=== PATIENT | female | born 1990 | race Caucasian/White ===

== ENCOUNTER 2016-05-05 20:04 | Emergency (ER) | payer MEDICAID, OTHER ==
[~2016-05-05] VITALS: Ht 170.2 cm; Wt 85.0 kg
[2016-05-05 20:05] VITALS: BP 127/83; PULSE 104; RESP 16; TEMP 98.2; O2SAT 98
--- NOTE | 2016-05-05 22:02 | PD ---
HPI Chief Complaint: Director Consumer Affairs Problem/Complaint Time Seen by Provider: 21:50 Travel History International Travel<30 days: No Contact w/Intl Traveler<30days: No Traveled to known affect area: No History of Present Illness HPI This patient was examined in the presence of a female nurse. 25 her old female presents for evaluation of a mass in the vagina. She reports that this occurred initially several months ago. She was seen in outside hospital that she had a "abscess of some kind" in her vagina. She is placed on antibiotics in the absence of eventually reduced significantly in size but never went completely well. The pain didn't completely go away. She reports that 2 days ago the pain and swelling returned which prompted evaluation. She denies any drainage. No fevers or chills. She notes that she is currently on her menstrual period. No other complaints. PFSH Past Medical History Diminished Hearing: No : 3 Para: 3 Past Surgical History Section: Yes Social History Alcohol Use: No Tobacco Use: No Substance Use: No Allergies-Medications (Allergen,Severity, Reaction): Coded Allergies: No Known Allergies (Unverified , 05/05/16) Reported Meds & Prescriptions Reported Meds & Active Scripts Active Zofran (Ondansetron HCl) 4 Mg Tab 4 Mg PO Q6HR PRN Lortab (Hydrocodone-Acetaminophen) 5-325 Mg Tab 1 Tab PO Q6H PRN Clindamycin (Clindamycin HCl) 300 Mg Cap 300 Mg PO TID 10 Days Review of Systems Except as stated in HPI: all other systems reviewed are Neg Physical Exam Narrative Examined in the presence of a female nurse GENERAL: Well-developed well-nourished female in no acute distress SKIN: Warm and dry. HEAD: Atraumatic. Normocephalic. EYES: Pupils equal and round. No scleral icterus. No injection or drainage. ENT: No nasal bleeding or discharge. Mucous membranes pink and moist. NECK: Trachea midline. No JVD. CARDIOVASCULAR: Regular rate and rhythm. No murmur appreciated. RESPIRATORY: No accessory muscle use. Clear to auscultation. Breath sounds equal bilaterally. GASTROINTESTINAL: Abdomen soft, non-tender, nondistended. Hepatic and splenic margins not palpable. Pelvic: There is a 3 cm fluctuant mass in the external vaginal canal at the 2 o' clock position. Tender to palpation. MUSCULOSKELETAL: No obvious deformities. Normal gait. NEUROLOGICAL: Awake and alert. No obvious cranial nerve deficits. Motor grossly within normal limits. Normal speech. PSYCHIATRIC: Appropriate mood and affect; insight and judgment normal. Data Data Last Documented VS Vital Signs Date Time Temp Pulse Resp B/P Pulse Ox O2 Delivery O2 Flow Rate FiO2 05/05/16 20:05 98.2 104 16 127/83 98 Orders Lidocai-Epi 1%-1:100,000 Inj (Xylocaine- (05/05/16 22:30) Oxycodone-Acetamin 5-325 Mg (Percocet (05/05/16 22:30) Ondansetron Odt (Zofran Odt) (05/05/16 22:30) Clindamycin Inj (Cleocin Inj) (05/05/16 22:30) MDM Medical Decision Making Medical Screen Exam Complete: Yes Emergency Medical Condition: Yes Medical Record Reviewed: Yes Differential Diagnosis Vaginal abscess, cyst, uterine prolapse, tumor Narrative Course 25 her old female who has had a mass in her left upper vaginal canal for the past several months presents now with 2 days worsening swelling in regards to the mass as well as pain. On examination she appears to have an abscess or infected cyst in the 2 o'clock position of the vaginal canal. The plan is for incision and drainage for which she verbally consents. A Word catheter was placed, wound culture was performed. The patient was given clindamycin, Percocet and Zofran. The patient will be given a mandatory outpatient referral for follow-up with gynecology. She is stable for discharge. Procedures Procedure Narrative INCISION AND DRAINAGE OF ABSCESS: The area was prepped and was sterilely draped. A subcutaneous wheal of 1% Xylocaine with epinephrine with a total number 5 mL was used to anesthetize the area. The area was properly anesthetized. A number 11 scalpel was used to make a 1-cm incision across the area of the abscess. Cultures were obtained. The abscess was drained an irrigated with normal saline. word catheter was placed and insufflated. Patient tolerated procedure well. Diagnosis Primary Impression: Abscess of vagina Referrals: Ticketing Agent Additional Instructions: As discussed, you should be receiving a call from our nurse outreach case manager in the next week to help facilitate outpatient follow-up with a inspector canned food reconditioning. Warm sitz baths 2-3 times daily 15 minutes at a time. Take the antibiotics as prescribed. Lortab for pain. Do not drive or drink alcohol when taking this medication. Return for new or worsening symptoms. Med/Other Pt SpecificInfo: Prescription(s) given, Wound Care Scripts Ondansetron (Zofran)4 Mg Tab4 Mg PO Q6HR PRN (NAUSEA OR VOMITING) #20 TAB Ref 0 Prov:Deborah Yu MD 05/05/16 Hydrocodone-Acetaminophen (Lortab)5-325 Mg Tab1 Tab PO Q6H PRN (PAIN) #20 TAB Ref 0 Prov:Deborah Yu MD 05/05/16 Clindamycin 300 Mg [id number] Mg PO TID 10 Days Ref 0 Prov:Deborah Yu MD 05/05/16 Disposition: 01 DISCHARGE HOME Condition: Stable Rj West May 05, 2016 22:02
[2016-05-05] MEDS ORDERED: oxyCODONE/ACETAMINOPHEN 5 MG/325 MG TAB PO ONE (22:30)
[2016-05-05] MEDS ORDERED: ONDANSETRON ODT 4 MG TAB PO ONE (22:30)
[2016-05-05] MEDS ORDERED: LIDOCAINE 1%/EPINEPHrine 1:100,000 SOLN 20 ML VIAL INFIL ONE (22:30)
[2016-05-05] MEDS ORDERED: CLINDAMYCIN PHOS 600 MG/4 ML VIAL IM ONE (22:30)
[2016-05-05] MEDS ORDERED: CLIN1CAP6 PO (22:53)
[2016-05-05] MEDS ORDERED: HYDR-3533 PO (22:53)
[2016-05-05] MEDS ORDERED: ZOFR4TAB PO (22:53)
--- NOTE | 2016-05-05 22:55 | PD ---
Data Data Last Documented VS Vital Signs Date Time Temp Pulse Resp B/P Pulse Ox O2 Delivery O2 Flow Rate FiO2 05/05/16 20:05 98.2 104 16 127/83 98 Orders Lidocai-Epi 1%-1:100,000 Inj (Xylocaine- (05/05/16 22:30) Oxycodone-Acetamin 5-325 Mg (Percocet (05/05/16 22:30) Ondansetron Odt (Zofran Odt) (05/05/16 22:30) Clindamycin Inj (Cleocin Inj) (05/05/16 22:30) MDM Supervised Visit with ALEXANDRU: Yes Narrative Course I, Dr. Yu, have reviewed the advance practice practioner's documentation and am in agreement, met with the patient face to face, made the diagnosis, and the medical decision making was done by me. *My assessment and Findings: 25-year-old female here with complaint of vaginal mass, initially had this approximately 8 months ago and had some sort of antibiotics. States it never completely went away but over the last 2 days it has increased in size. On exam patient has a protuberant fluctuant mass inside the vaginal vault at approximately 2 to 4:00. Bimanual examination is unremarkable and there is no cervical masses. There is a centralized area that is blanched and very fluctuant. Exam is most consistent with Bartholin's abscess versus intravaginal abscess. There does not appear any inflammatory tissue suspicious for cancer. Abscess was incised and drained by PA, please see procedure note. Word catheter was placed. She will be started on antibiotics and given outpatient mandatory referral for ORBITREAD OPERATOR. Scripts No Active Prescriptions or Reported Meds Deborah Yu MD May 05, 2016 22:55
== END 2016-05-06 00:09 | disposition home or self-care (01) ==
LOC: NEPE 20:04
DX: N76.4 Abscess of vulva (principal); B96.89 Other specified bacterial agents as the cause of diseases classified elsewhere
CPT/HCPCS: 56405; 87070; 87205; 96372

== ENCOUNTER 2016-05-07 15:01 | Emergency (ER) | payer MEDICAID ==
[~2016-05-07] VITALS: Ht 170.2 cm; Wt 81.8 kg
[~2016-05-07 15:01] MED LIST: CLIN1CAP6 PO; HYDR-3533 PO; ZOFR4TAB PO
[2016-05-07 15:07] VITALS: BP 125/71; PULSE 77; RESP 12; TEMP 98.5; O2SAT 99
--- NOTE | 2016-05-07 19:44 | PD ---
HPI Chief Complaint: Silo Filler Problem Time Seen by Provider: 19:44 Travel History International Travel<30 days: No Contact w/Intl Traveler<30days: No Traveled to known affect area: No History of Present Illness HPI 25 year-old female presents to emergency department for evaluation. Patient was seen and evaluated 2 days ago for a vaginal abscess. A Word catheter was placed at that time but the patient states that it fell out today. She reports taking her antibiotics as prescribed. She states that her symptoms have nearly completely resolved but she is concerned that the catheter should be placed back in. She has no other symptoms to report. [facility] Past Medical History Medical History: Denies Significant Hx Diminished Hearing: No Reproductive: Yes (UTERINE PROLAPSE) ?: Not LMP: 05/07/2016 : 3 Para: 3 Past Surgical History Section: Yes Social History Alcohol Use: No Tobacco Use: No Substance Use: No Allergies-Medications (Allergen,Severity, Reaction): Coded Allergies: No Known Allergies (Unverified , 05/07/16) Reported Meds & Prescriptions Reported Meds & Active Scripts Active Zofran (Ondansetron HCl) 4 Mg Tab 4 Mg PO Q6HR PRN Lortab (Hydrocodone-Acetaminophen) 5-325 Mg Tab 1 Tab PO Q6H PRN Clindamycin (Clindamycin HCl) 300 Mg Cap 300 Mg PO TID 10 Days Review of Systems Except as stated in HPI: all other systems reviewed are Neg Physical Exam Narrative GENERAL: Well-nourished female patient in no acute distress SKIN: Warm and dry. HEAD: Atraumatic. Normocephalic. EYES: Pupils equal and round. No scleral icterus. No injection or drainage. ENT: No nasal bleeding or discharge. Mucous membranes pink and moist. NECK: Trachea midline. No JVD. CARDIOVASCULAR: Regular rate and rhythm. No murmur appreciated. RESPIRATORY: No accessory muscle use. Clear to auscultation. Breath sounds equal bilaterally. GASTROINTESTINAL: Abdomen soft, non-tender, nondistended. Hepatic and splenic margins not palpable. GENITOURINARY: Normal external genitalia without lesions or erythema. There is no noted abscess. There is no area of induration. MUSCULOSKELETAL: No obvious deformities. No clubbing. No cyanosis. No edema. NEUROLOGICAL: Awake and alert. No obvious cranial nerve deficits. Motor grossly within normal limits. Normal speech. PSYCHIATRIC: Appropriate mood and affect; insight and judgment normal. Data Data Last Documented VS Vital Signs Date Time Temp Pulse Resp B/P Pulse Ox O2 Delivery O2 Flow Rate FiO2 05/07/16 19:41 Room Air 05/07/16 15:07 98.5 77 12 125/71 99 MDM Medical Decision Making Medical Screen Exam Complete: Yes Emergency Medical Condition: Yes Medical Record Reviewed: Yes Differential Diagnosis Abscess resolved versus wound recheck versus recurrent abscess versus Bartholin' s cyst Narrative Course 25 year-old female presents to emergency department for evaluation. Patient appears without distress. Exam was done in the presence of another nurse. The external genitalia appear normal without any area of inflammation, erythema, or induration. I have offered reassurance and explained to her that there is no need for the word catheter to be replaced at this time. I've instructed her to continue her antibiotics and to return immediately with any acute worsening of symptoms. Diagnosis Primary Impression: Wound check, abscess Additional Impression: Abscess of vagina Referrals: Final Assembler Boat Primary Care Physician Patient Instructions: Abscess Follow-up (ED), General Instructions Additional Instructions: Follow-up with primary care provider Return immediately to the emergency department with any acute worsening of symptoms A mandatory for a was placed on your last visit for gynecology follow-up. If you do not hear anything by the end of this week, contact [phone] and asked for mandatory referral person. Complete your full course of antibiotics. Take them as they are already prescribed Return immediately to the emergency department with any acute worsening of symptoms Med/Other Pt SpecificInfo: No Change to Meds Disposition: 01 DISCHARGE HOME Condition: Stable Violet Saleem May 07, 2016 19:44
== END 2016-05-07 20:01 | disposition home or self-care (01) ==
LOC: NEPB 15:01
DX: L02.818 Cutaneous abscess of other sites (principal); Z87.42 Personal history of other diseases of the female genital tract
CPT/HCPCS: 99281

== ENCOUNTER 2017-08-12 23:01 | Emergency (ER) | payer MEDICAID ==
[~2017-08-12 23:01] MED LIST changes: -CLIN1CAP6 PO; -ZOFR4TAB PO
[2017-08-12 23:16] VITALS: BP 137/80; PULSE 103; RESP 18; TEMP 98.6; O2SAT 100
[2017-08-12 23:36] VITALS: BP 146/74; PULSE 92; RESP 18; O2SAT 99
[2017-08-12 23:51] VITALS: O2SAT 100
--- NOTE | 2017-08-13 | PD ---
HPI Chief Complaint: Abdominal Pain Time Seen by Provider: 23:41 Travel History International Travel<30 days: No Contact w/Intl Traveler<30days: No Traveled to known affect area: No History of Present Illness HPI The patient is a 26 year old female who presents to the [facility] emergency department with a history of lower abdominal discomfort in the suprapubic area that began at 3 PM. She reports that the pain was initially coming and going, however it is become more severe with time. She reports that it is now sharp in character. She denies having any vaginal discharge or vaginal bleeding associated with this. Her last menstrual cycle was on June 28. She reports that she had a copper IUD removed on July 08 and resumed having intercourse with her on July 19. She reports that she is trying to get again. She is a with 2 vaginal deliveries and 1 C- section. She denies having any dysuria, urinary frequency, or urinary urgency. She reports having nausea without vomiting. She denies having any diarrhea. She has continued to move her bowels regularly. She denies having any known recent fevers, cough or congestion, neck pain, chest pain, shortness of breath, or neurologic symptoms. The patient reports that she does have some breast tenderness. [facility] Past Medical History Narrative Medical The patient's past medical history is reportedly none. Diminished Hearing: No Reproductive: Yes (UTERINE PROLAPSE) Tetanus Vaccination: Unknown Influenza Vaccination: No ?: Unknown LMP: 05/2017 : 3 Para: 3 Past Surgical History Narrative Surgical The patient's past surgical history is significant for a . Section: Yes Social History Alcohol Use: No Tobacco Use: No Substance Use: No Allergies-Medications (Allergen,Severity, Reaction): Coded Allergies: No Known Allergies (Unverified Adverse Reaction, Unknown, 08/12/17) Reported Meds & Prescriptions Reported Meds & Active Scripts Active No Active Prescriptions or Reported Medications Review of Systems Except as stated in HPI: all other systems reviewed are Neg General / Constitutional: No: Fever Eyes: No: Visual changes HENT: No: Headaches Cardiovascular: No: Chest Pain or Discomfort Respiratory: No: Shortness of Breath Gastrointestinal: Positive: Nausea, Abdominal Pain, No: Vomiting, Diarrhea, Changes in Bowel Habits, Indigestion, Loss of Appetite Genitourinary: Positive: Pelvic Pain, No: Urgency, Frequency, Dysuria, Discharge, Vaginal Bleeding Musculoskeletal: No: Pain Skin: No Rash Neurologic: No: Weakness Psychiatric: No: Depression Endocrine: No: Polydipsia Hematologic/Lymphatic: No: Easy Bruising Physical Exam Narrative General: The patient is a well-developed well-nourished female in no acute distress. Head and Neck exam: Head is normocephalic atraumatic. Eyes: EOMI, pupils are equal round and reactive to light. Nose: Midline septum with pink mucous membranes Mouth: Dentition unremarkable. Moist mucus membranes. Posterior oropharynx is not erythematous. No tonsillar hypertrophy. Uvula midline. Airway patent. Neck: No palpable lymphadenopathy. No nuchal rigidity. No thyromegaly. Cardiovascular: Regular rate and rhythm without murmurs, gallops, or rubs. No pulse deficit to the extremities on simultaneous auscultation and palpation of her radial artery. Lungs: Clear to auscultation bilaterally. No wheezes, rhonchi, or rales. Abdomen: Soft, with tenderness on palpation of the suprapubic area, no other tenderness on palpation of the other quadrants of the abdomen. No guarding, rebound, or rigidity. Normal bowel sounds are audible. No tenderness on palpation of McBurney's point. Negative Cisneros sign. Extremities: No clubbing, cyanosis, or edema. 2+ pulses in all 4 extremities. No calf tenderness on palpation. Back: No costovertebral angle tenderness to palpation. Neurologic Exam: Grossly nonfocal. Skin Exam: No rash noted. Intact skin that is warm and dry. Gynecologic exam: The patient was placed in the dorsal lithotomy position. Her external genitalia were examined. She had no evidence of rash or lesions. The speculum was placed into her vagina and the cervix was identified. She has a physiologic appearing white thin discharge. No cervical friability. On Bimanual exam: The patient has cervical motion tenderness on palpation. No adnexal tenderness or prominence noted on palpation. No uterine tenderness or enlargement noted on palpation. Data Data Last Documented VS Vital Signs Date Time Temp Pulse Resp B/P (MAP) Pulse Ox O2 Delivery O2 Flow Rate FiO2 08/13/17 01:37 98.7 71 16 131/83 99 08/12/17 23:51 Room Air Orders Orders Complete Blood Count With Diff (08/12/17 23:48) Comprehensive Metabolic Panel (08/12/17 23:48) C-Reactive Protein (Crp) (08/12/17 23:48) Lipase (08/12/17 23:48) Urinalysis - C+S If Indicated (08/12/17 23:48) Beta Hcg (Quant/Titer) (08/12/17 23:48) Iv Access Insert/Monitor (08/12/17 23:48) Ecg Monitoring (08/12/17 23:48) Oximetry (08/12/17 23:48) Ed Urine Pregnancytest Poc (08/12/17 23:48) Gc And Chlamydia Pcr (08/12/17 23:55) Complete Rh (08/12/17 23:55) Wet Prep Profile (08/12/17 23:55) Us Pelvis (Ques Pr/Ect)W Trans (08/13/17 00:37) Rhogam Only (08/13/17 01:10) Ed Poc Ultrasound (08/13/17 01:38) Ed Discharge Order (08/13/17 03:29) Labs Laboratory Tests Test 08/12/17 23:52 08/12/17 23:55 08/13/17 00:10 White Blood Count 12.2 TH/MM3 Red Blood Count 4.72 MIL/MM3 Hemoglobin 12.5 GM/DL Hematocrit 36.4 % Mean Corpuscular Volume 77.1 FL Mean Corpuscular Hemoglobin 26.5 PG Mean Corpuscular Hemoglobin Concent 34.3 % Red Cell Distribution Width 13.2 % Platelet Count 231 TH/MM3 Mean Platelet Volume 10.0 FL Neutrophils (%) (Auto) 56.6 % Lymphocytes (%) (Auto) 34.4 % Monocytes (%) (Auto) 5.9 % Eosinophils (%) (Auto) 2.6 % Basophils (%) (Auto) 0.5 % Neutrophils # (Auto) 6.9 TH/MM3 Lymphocytes # (Auto) 4.2 TH/MM3 Monocytes # (Auto) 0.7 TH/MM3 Eosinophils # (Auto) 0.3 TH/MM3 Basophils # (Auto) 0.1 TH/MM3 CBC Comment DIFF FINAL Differential Comment Blood Urea Nitrogen 14 MG/DL Creatinine 0.64 MG/DL Random Glucose 89 MG/DL Total Protein 7.9 GM/DL Albumin 3.6 GM/DL Calcium Level 8.8 MG/DL Alkaline Phosphatase 95 U/L Aspartate Amino Transf (AST/SGOT) 14 U/L Alanine Aminotransferase (ALT/SGPT) 26 U/L Total Bilirubin 0.3 MG/DL Sodium Level 138 MEQ/L Potassium Level 3.6 MEQ/L Chloride Level 104 MEQ/L Carbon Dioxide Level 25.5 MEQ/L Anion Gap 9 MEQ/L Estimat Glomerular Filtration Rate 111 ML/MIN C-Reactive Protein 1.66 MG/DL Lipase 124 U/L Human Chorionic Gonadotropin, Quant 37 MIU/ML Urine Color LIGHT-YELLOW Urine Turbidity CLEAR Urine pH 6.5 Urine Specific [place] 1.005 Urine Protein NEG mg/dL Urine Glucose (UA) NEG mg/dL Urine Ketones NEG mg/dL Urine Occult Blood NEG Urine Nitrite NEG Urine Bilirubin NEG Urine Urobilinogen LESS THAN 2.0 MG/DL Urine Leukocyte Esterase MOD Urine WBC 1 /hpf Urine Squamous Epithelial Cells <1 /hpf Microscopic Urinalysis Comment CULT NOT INDICATED Clue Cells (Wet Prep) NONE SEEN Vaginal Trichomonas (Wet Prep) NONE SEEN Vaginal Yeast (Wet Prep) NONE SEEN Chlamydia trachomatis DNA (PCR) NOT DETECTED Neisseria gonorrhoeae DNA (PCR) NOT DETECTED MDM Medical Decision Making Medical Screen Exam Complete: Yes Emergency Medical Condition: Yes Medical Record Reviewed: Yes Differential Diagnosis Early , versus ectopic , versus premenstrual cramping, versus cystitis, versus PID, versus uterine perforation Narrative Course During the course of the patient's emergency department visit, the patient's history, examination, and differential diagnosis were reviewed with the patient. The patient was placed on a telemetry monitor with oximetry and frequent blood pressure monitoring. The patient had IV access obtained and blood work sent for analysis. A bedside test looked faintly positive, a quantitative beta hCG has been ordered. The patient was initially provided normal saline at 500 mL bolus 1, Zofran ODT. The patient's laboratory studies were reviewed and remarkable for a white count of 12.2, hemoglobin 12.5, platelets 231 with a normal differential, CMP is remarkable for an AST of 14, C-reactive protein 1.66, quantitative beta-hCG is 37, lipase 124. Urinalysis is unremarkable wet prep is negative, GC and Chlamydia are not detected. Radiology studies were reviewed and remarkable for a transvaginal and transabdominal pelvic ultrasound were ordered and showed no sonographic evidence of intrauterine , tiny 3 mm cyst in the vaginal canal, no adnexal mass or free fluid. The patient's blood type was noted to be Rh-. The patient was given RhoGam. I spoke to Jack regarding these findings at approximately 2:45 AM. He agreed that the patient could follow-up with the [facility] clinic in 3 days for repeat quantitative beta-hCG. The patient was provided a copy of her ultrasound report. The patient was provided a lab slip for repeat quantitative beta-hCG. She was instructed that if she develops any new or worsening signs or symptoms such as vaginal bleeding , increased abdominal pain, she should report back immediately to the emergency department. The patient is resting comfortably and feels better, is alert and in no distress. The patient's results and examination findings were discussed with the patient. The repeat examination is unremarkable and benign. The history, exam, diagnostic testing, and current condition do not suggest any significant pathology to warrant further testing, continued ED treatment, admission, or surgical evaluation at this point. The vital signs have been stable. The patient does not have uncontrollable pain, intractable vomiting, or other significant symptoms. The patient's condition is stable and appropriate for discharge. The patient will pursue further outpatient evaluation with a primary care physician or other designated or consulting physician as indicated in the discharge instructions. The patient expressed understanding and was agreeable with this plan. Physician Communication Physician Communication The patient's case including history, pertinent physical examination findings, and laboratory studies were discussed with Dr. Santiago. It was agreed that the patient could follow-up with the [place] [facility] in 3 days for repeat quantitative beta-hCG. Diagnosis Primary Impression: Abdominal pain affecting Referrals: [facility] 3 days Patient Instructions: Abdominal Pain in (ED), General Instructions Additional Instructions: The patient was instructed that if she develops any new or worsening signs or symptoms, including increased abdominal pain, vaginal bleeding, she should report back immediately to the emergency department. Med/Other Pt SpecificInfo: No Change to Meds Scripts No Active Prescriptions or Reported Meds Disposition: 01 DISCHARGE HOME Condition: Rita Quach MD August 13, 2017 00:00
[2017-08-13 00:06] LABS: AUTOMATED NEUTROPHIL # 6.9 TH/MM3 (1.8-7.7); BASOPHIL # 0.1 TH/MM3 (0-0.2); BASOPHIL % 0.5 % (0.0-2.0); EOSINOPHIL # 0.3 TH/MM3 (0-0.4); EOSINOPHIL % 2.6 % (0.0-4.0); HEMATOCRIT 36.4 % (35.0-46.0); HEMOGLOBIN 12.5 GM/DL (11.6-15.3); LYMPH % 34.4 % (9.0-44.0); LYMPHOCYTE # 4.2 TH/MM3 (1.0-4.8); MEAN CELL VOLUME 77.1 FL (80.0-100.0); MEAN CORPUSCULAR HEMOGLOBIN 26.5 PG (27.0-34.0); MEAN CORPUSCULAR HGB CONC 34.3 % (32.0-36.0); MONO % 5.9 % (0.0-8.0); MONOCYTE # 0.7 TH/MM3 (0-0.9); NEUT % 56.6 % (16.0-70.0); PLATELET COUNT 231 TH/MM3 (150-450); RED BLOOD COUNT 4.72 MIL/MM3 (4.00-5.30); RED CELL DISTRIBUTION WIDTH 13.2 % (11.6-17.2); WHITE BLOOD COUNT 12.2 TH/MM3 (4.0-11.0)
[2017-08-13 00:10] LABS: BILIRUBIN, URINE NEG (NEG); BLOOD, URINE NEG (NEG); GLUCOSE,URINE NEG (NEG); KETONE, URINE NEG (NEG); NITRITE,URINE NEG (NEG); PH, URINE 6.5 (5.0-8.5); SQUAMOUS EPITHELIAL CELL URINE <1 /hpf (0-5); URINE COLOR LIGHT-YELLOW (YELLW/STRAW); URINE LEUKOCYTE ESTERASE MOD (NEG)
[2017-08-13 00:26] LABS: ALBUMIN 3.6 GM/DL (3.4-5.0); ALT (GPT) 26 U/L (10-53); AST (GOT) 14 U/L (15-37); BICARBONATE 25.5 MEQ/L (21.0-32.0); BLOOD UREA NITROGEN 14 MG/DL (7-18); CALCIUM 8.8 MG/DL (8.5-10.1); CHLORIDE 104 MEQ/L (98-107); CREATININE 0.64 MG/DL (0.50-1.00); GLOMERULAR FILTRATION RATE 111 ML/MIN (>89); GLUCOSE,RANDOM 89 MG/DL (74-106); SODIUM (NA) 138 MEQ/L (136-145)
[2017-08-13 00:30] LABS: ALKALINE PHOSPHATASE 95 U/L (45-117); C-REACTIVE PROTEIN 1.66 MG/DL (0.00-0.30); TOTAL BILIRUBIN ADULT 0.3 MG/DL (0.2-1.0); TOTAL PROTEIN 7.9 GM/DL (6.4-8.2)
[2017-08-13 01:37] VITALS: BP 131/83; PULSE 71; RESP 16; TEMP 98.7; O2SAT 99
--- NOTE | 2017-08-13 02:38 | RADRPT ---
EXAM DATE/TIME: 08/13/2017 01:45 [place] COMPARISON: No previous studies available for comparison. INDICATIONS : Pelvic pain. LAB(S): Beta-hC MEDICAL HISTORY : . Uterine prolapse. SURGICAL HISTORY : section. ENCOUNTER: Initial ACUITY: 1 day PAIN SCORE: 7/10 LOCATION: Bilateral pelvis MEASUREMENTS: UTERUS: 10.3 x 6.2 x 4.4 cm ENDOMETRIAL STRIPE: 20 mm RIGHT OVARY: 4.1 x 3.4 x 2.0 cm LEFT OVARY: 2.5 x 2.2 x 1.7 cm FREE FLUID: No FINDINGS: Currently no sonographic evidence for intrauterine . Tiny 3 mm cyst in the vaginal canal of unknown etiology. Endometrial stripe thickened up to 20 mm. Ovaries are unremarkable. No adnexal mass or free fluid. CONCLUSION: No sonographic evidence for intrauterine . Tiny 3 mm cyst in the vaginal canal. No adnexal m ass or free fluid. Williams Overton MD on August 13, 2017 at 2:34 Board Certified Radiologist. This report was verified electronically.
== END 2017-08-13 03:50 | disposition home or self-care (01) ==
LOC: NEPE 23:01
DX: O26.899 Other specified pregnancy related conditions, unspecified trimester (principal); R10.2 Pelvic and perineal pain; Z3A.00 Weeks of gestation of pregnancy not specified
CPT/HCPCS: 76700; 76817; 80053; 81001; 83690; 84702; 84703; 85025; 86140; 86901; 87210; 87491; 87591; 90384; 96372; J2790

== ENCOUNTER → 2017-08-15 | Outpatient (CLI) | DX: Z34.90 Encounter for supervision of normal pregnancy, unspecified, unspecified trimester (principal); R10.9 Unspecified abdominal pain ==

== ENCOUNTER 2017-09-03 17:44 | Emergency (ER) | payer MEDICAID, OTHER ==
[2017-09-03 17:51] VITALS: BP 156/71; PULSE 102; RESP 14; TEMP 98.4; O2SAT 99
--- NOTE | 2017-09-03 19:25 | PD ---
HPI Chief Complaint: GI Complaint Time Seen by Provider: 19:03 Travel History International Travel<30 days: No Contact w/Intl Traveler<30days: No Traveled to known affect area: No History of Present Illness HPI pt is a 26 y.o female at 8 weeks gestation who presents to the ED with a cc of "itching around my butt". Pt states that she has been having perineal and mervat-rectal itching X 1 month. Her sxs where initially exacerbated by urination , however now her sxs worsen only at night. There's no relieving factors. Pt also reports having some nausea, and decrease appetite with mild generalized abdominal cramping X 2 weeks.The abdominal cramping is 3/10 and constant. There are no exacerbating or alleviating factors. Denies Fever, SOB, H/A, scotomas, dysuria, hematuria. History Past Medical History : 3 Para: 3 Social History Alcohol Use: No Tobacco Use: No Allergies-Medications (Allergen,Severity, Reaction): Coded Allergies: No Known Allergies (Unverified Adverse Reaction, Unknown, 09/03/17) Reported Meds & Prescriptions Reported Meds & Active Scripts Active Lidocaine Rectal 5 % Cream 1 Applic RECTAL BID PRN Macrobid (Nitrofurantoin Monohydrate Macrocrystals) 100 Mg Capsule 100 Mg PO BID 7 Days Review of Systems Except as stated in HPI: all other systems reviewed are Neg Physical Exam Narrative GENERAL: Well-developed well-nourished no obvious distress SKIN: Warm and dry. HEAD: Atraumatic. Normocephalic. EYES: Pupils equal and round. No scleral icterus. No injection or drainage. ENT: No nasal bleeding or discharge. Mucous membranes pink and moist. NECK: Trachea midline. No JVD. CARDIOVASCULAR: Regular rate and rhythm. RESPIRATORY: No accessory muscle use. Clear to auscultation. Breath sounds equal bilaterally. GASTROINTESTINAL: Abdomen soft, non-tender, nondistended. Hepatic and splenic margins not palpable. Genitourinary: Exam performed with female nurse subassemblies wirer present all times, no discharge no bleeding, no cervical motion tenderness, nontender exam. Internal rectal exam deferred, external rectal exam shows no erythema no hemorrhoid. MUSCULOSKELETAL: Extremities without clubbing, cyanosis, or edema. No obvious deformities. NEUROLOGICAL: Awake and alert. No obvious cranial nerve deficits. Motor grossly within normal limits. Five out of 5 muscle strength in the arms and legs. Normal speech. PSYCHIATRIC: Appropriate mood and affect; insight and judgment normal. Data Data Last Documented VS Vital Signs Date Time Temp Pulse Resp B/P (MAP) Pulse Ox O2 Delivery O2 Flow Rate FiO2 09/03/17 17:51 98.4 102 14 156/71 (99) 99 Orders Orders Urinalysis - C+S If Indicated (09/03/17 19:13) Ed Urine Pregnancytest Poc (09/03/17 19:13) Ed Poc Ultrasound (09/03/17 ) Gc And Chlamydia Pcr (09/03/17 19:18) Urine Culture (09/03/17 19:40) Wet Prep Profile (09/03/17 20:16) Stool Ova And Parasite Screen (09/03/17 20:16) Ed Discharge Order (09/03/17 20:49) Labs Laboratory Tests Test 09/03/17 19:40 09/03/17 20:20 Urine Color YELLOW Urine Turbidity CLEAR Urine pH 6.0 Urine Specific [place] 1.015 Urine Protein NEG mg/dL Urine Glucose (UA) NEG mg/dL Urine Ketones NEG mg/dL Urine Occult Blood NEG Urine Nitrite NEG Urine Bilirubin NEG Urine Urobilinogen LESS THAN 2.0 MG/DL Urine Leukocyte Esterase MOD Urine RBC 1 /hpf Urine WBC 10 /hpf Urine Squamous Epithelial Cells 1 /hpf Urine Bacteria RARE /hpf Urine Mucus FEW /lpf Microscopic Urinalysis Comment CULTURE INDICATED Clue Cells (Wet Prep) NONE SEEN Vaginal Trichomonas (Wet Prep) NONE SEEN Vaginal Yeast (Wet Prep) NONE SEEN Chlamydia trachomatis DNA (PCR) NOT DETECTED Neisseria gonorrhoeae DNA (PCR) NOT DETECTED MDM Medical Decision Making Medical Screen Exam Complete: Yes Emergency Medical Condition: Yes Differential Diagnosis Pinworm infection, Gestational hyperemesis, , PID, Narrative Course Patient room to the emergency department, on further history the patient states that her son was diagnosed with pinworms recently. However according to CDC pinworms cannot be safely treated with antiparasitic's until third trimester. This recommendation was conveyed to the patient and certainly albendazole and mebendazole are known to cause defects in animal models. Therefore we will have to manage symptomatically for the time being, discussed need follow- up with her primary care physician. She stable for discharge Incidental finding of asymptomatic bacteriuria. Procedures Procedure Narrative Bedside ultrasound: Transabdominal views showing intrauterine pulse seen, does have faint heart motion. Too early for measurement. No gross deformity no gross abnormality and no pelvic free fluid peer Diagnosis Primary Impression: Asymptomatic bacteriuria Additional Impression: Anal pruritus Med/Other Pt SpecificInfo: Prescription(s) given Scripts Lidocaine Rectal (Lidocaine Rectal) 5 % Cream 1 APPLIC RECTAL BID Y for ITCHING, #1 TUBE 0 Refills Prov: Samuel Mott MD 09/03/17 Nitrofurantoin Monohydrate Macrocrystals (Macrobid) 100 Mg Capsule 100 MG PO BID for Infection for 7 Days, #14 CAP 0 Refills Prov: Samuel Mott MD 09/03/17 Disposition: 01 DISCHARGE HOME Condition: Stable Samuel Mott MD Sep 03, 2017 19:25
[2017-09-03 20:07] LABS: BACTERIA, URINE RARE /hpf; BILIRUBIN, URINE NEG (NEG); BLOOD, URINE NEG (NEG); GLUCOSE,URINE NEG (NEG); KETONE, URINE NEG (NEG); MUCUS URINE FEW /lpf (OCC); NITRITE,URINE NEG (NEG); SQUAMOUS EPITHELIAL CELL URINE 1 /hpf (0-5); URINE COLOR YELLOW (YELLW/STRAW); URINE LEUKOCYTE ESTERASE MOD (NEG)
[2017-09-03] MEDS ORDERED: MACR100C2 PO (20:49)
[2017-09-03] MEDS ORDERED: LIDO4CRE5 RECTAL (20:49)
== END 2017-09-03 21:10 | disposition home or self-care (01) ==
LOC: NEPD 17:44
DX: O26.891 Other specified pregnancy related conditions, first trimester (principal); R82.71 Bacteriuria; L29.0 Pruritus ani; Z3A.08 8 weeks gestation of pregnancy
CPT/HCPCS: 81001; 84703; 87086; 87210; 87491; 87591; 99284

== ENCOUNTER 2017-09-11 00:39 | Emergency (ER) | payer OTHER ==
[~2017-09-11] VITALS: Ht 170.2 cm; Wt 88.0 kg
[~2017-09-11 00:39] MED LIST changes: -HYDR-3533 PO; +LIDO4CRE5 RECTAL; +MACR100C2 PO
[2017-09-11 00:41] VITALS: BP 151/79; PULSE 92; RESP 18; TEMP 98; O2SAT 99
[2017-09-11 01:41] LABS: AUTOMATED NEUTROPHIL # 5.2 TH/MM3 (1.8-7.7); BASOPHIL % 0.4 % (0.0-2.0); EOSINOPHIL # 0.3 TH/MM3 (0-0.4); EOSINOPHIL % 3.6 % (0.0-4.0); HEMATOCRIT 35.4 % (35.0-46.0); HEMOGLOBIN 12.3 GM/DL (11.6-15.3); LYMPH % 32.6 % (9.0-44.0); MEAN CELL VOLUME 76.7 FL (80.0-100.0); MEAN CORPUSCULAR HEMOGLOBIN 26.7 PG (27.0-34.0); MEAN CORPUSCULAR HGB CONC 34.8 % (32.0-36.0); MEAN PLATELET VOLUME 9.9 FL (7.0-11.0); MONO % 7.8 % (0.0-8.0); MONOCYTE # 0.7 TH/MM3 (0-0.9); NEUT % 55.6 % (16.0-70.0); PLATELET COUNT 239 TH/MM3 (150-450); RED BLOOD COUNT 4.62 MIL/MM3 (4.00-5.30); RED CELL DISTRIBUTION WIDTH 13.4 % (11.6-17.2); WHITE BLOOD COUNT 9.3 TH/MM3 (4.0-11.0)
--- NOTE | 2017-09-11 02:11 | PD ---
HPI Chief Complaint: Related Problem Time Seen by Provider: 00:49 Travel History International Travel<30 days: No Contact w/Intl Traveler<30days: No Traveled to known affect area: No History of Present Illness HPI Sit 26-year-old woman presents to the emergency department complaining of lower abdominal bleeding cramping. She is about 8 weeks . Last menstrual period was June 28 however she had her IUD removed on July 08. She was recently treated for asystematic bacteriuria with Macrobid. Bedside ultrasound did show at that time according the medical record from that time. Patient states antibiotic made her sick and she felt unwell for this. Past 24 hours she developed lower abdominal cramping, and copious vaginal bleeding. She is 4, para 3. She is Rh- and had a RhoGam shot about a month ago in July. History Past Medical History Medical History: Denies Significant Hx Tetanus Vaccination: Unknown Influenza Vaccination: No LMP: 06/28/17 - IUD OUT 07/08/17 : 3 Para: 3 Past Surgical History Surgical History: No Previous Surgery Social History Alcohol Use: No Tobacco Use: No Allergies-Medications (Allergen,Severity, Reaction): Coded Allergies: No Known Allergies (Unverified Adverse Reaction, Unknown, 09/11/17) Reported Meds & Prescriptions Reported Meds & Active Scripts Active Lidocaine Rectal 5 % Cream 1 Applic RECTAL BID PRN Macrobid (Nitrofurantoin Monohydrate Macrocrystals) 100 Mg Capsule 100 Mg PO BID 7 Days Review of Systems Except as stated in HPI: all other systems reviewed are Neg Physical Exam Narrative GENERAL: Well-appearing 26-year-old woman, no acute distress. SKIN: Focused skin assessment warm/dry. HEAD: Atraumatic. Normocephalic. EYES: Pupils equal and round. No scleral icterus. No injection or drainage. ENT: No nasal bleeding or discharge. Mucous membranes pink and moist. NECK: Trachea midline. No JVD. CARDIOVASCULAR: Regular rate and rhythm. No murmur appreciated. RESPIRATORY: No accessory muscle use. Clear to auscultation. Breath sounds equal bilaterally. GASTROINTESTINAL: Abdomen soft, non-tender, nondistended. Hepatic and splenic margins not palpable. MUSCULOSKELETAL: No obvious deformities. : Normal external female genitalia. Moderate dark blood. Data Data Last Documented VS Vital Signs Date Time Temp Pulse Resp B/P (MAP) Pulse Ox O2 Delivery O2 Flow Rate FiO2 09/11/17 00:41 98.0 92 18 151/79 (103) 99 Orders Orders Beta Hcg (Quant/Titer) (09/11/17 01:06) Complete Blood Count With Diff (09/11/17 01:06) Ua Includes Microscopic (09/11/17 01:06) Us Pelvis (Ques Pr/Ect)W Trans (09/11/17 ) Rhogam Only (09/11/17 02:09) Ed Discharge Order (09/11/17 03:58) Labs Laboratory Tests Test 09/11/17 01:20 09/11/17 02:55 White Blood Count 9.3 TH/MM3 Red Blood Count 4.62 MIL/MM3 Hemoglobin 12.3 GM/DL Hematocrit 35.4 % Mean Corpuscular Volume 76.7 FL Mean Corpuscular Hemoglobin 26.7 PG Mean Corpuscular Hemoglobin Concent 34.8 % Red Cell Distribution Width 13.4 % Platelet Count 239 TH/MM3 Mean Platelet Volume 9.9 FL Neutrophils (%) (Auto) 55.6 % Lymphocytes (%) (Auto) 32.6 % Monocytes (%) (Auto) 7.8 % Eosinophils (%) (Auto) 3.6 % Basophils (%) (Auto) 0.4 % Neutrophils # (Auto) 5.2 TH/MM3 Lymphocytes # (Auto) 3.0 TH/MM3 Monocytes # (Auto) 0.7 TH/MM3 Eosinophils # (Auto) 0.3 TH/MM3 Basophils # (Auto) 0.0 TH/MM3 CBC Comment DIFF FINAL Differential Comment Human Chorionic Gonadotropin, Quant 39811 MIU/ML Urine Color YELLOW Urine Turbidity CLEAR Urine pH 6.5 Urine Specific [place] 1.015 Urine Protein NEG mg/dL Urine Glucose (UA) NEG mg/dL Urine Ketones NEG mg/dL Urine Occult Blood SMALL Urine Nitrite NEG Urine Bilirubin NEG Urine Urobilinogen LESS THAN 2.0 MG/DL Urine Leukocyte Esterase NEG Urine RBC LESS THAN 1 /hpf Urine WBC LESS THAN 1 /hpf Urine Squamous Epithelial Cells 1 /hpf MDM Medical Decision Making Medical Screen Exam Complete: Yes Emergency Medical Condition: Yes Differential Diagnosis Threatened AB, ectopic, other Narrative Course Medical decision making 26-year-old woman, cramping bleeding in early . Will repeat formal ultrasound for IUP. Recheck hCG. She had a RhoGam shot within 3 weeks ago. Reviewed indications for repeat treatment. No clear indications found. Thought is that half-life is about 3 weeks. This point, will repeat the dose given repeat hemorrhage. Likely discharge. Diagnosis Primary Impression: Threatened Patient Instructions: General Instructions Additional Instructions: Follow-up with your coffin maker. Return emerged department if worsening abdominal pain, heavy vaginal bleeding, or any other new or worsening symptoms. Pelvic rest until you follow-up with your OB. Med/Other Pt SpecificInfo: No Change to Meds Disposition: 01 DISCHARGE HOME Condition: Teofilo Denton MD Sep 11, 2017 02:11
[2017-09-11 03:11] LABS: BILIRUBIN, URINE NEG (NEG); BLOOD, URINE SMALL (NEG); GLUCOSE,URINE NEG (NEG); KETONE, URINE NEG (NEG); NITRITE,URINE NEG (NEG); PH, URINE 6.5 (5.0-8.5); SQUAMOUS EPITHELIAL CELL URINE 1 /hpf (0-5); URINE COLOR YELLOW (YELLW/STRAW); URINE LEUKOCYTE ESTERASE NEG (NEG)
--- NOTE | 2017-09-11 03:46 | RADRPT ---
EXAM DATE: 09/11/2017 3:38 AM EDT AGE/SEX: 26 years / Female INDICATIONS: Bleeding with . CLINICAL DATA: This is the patient's initial encounter. Patient reports that signs and symptoms have been present for 1 day and indicates a pain score of 0/10. MEDICAL/SURGICAL HISTORY: . section. COMPARISON: No prior exams available for comparison. MEASUREMENTS: Uterus:__10.8 x 7.4 x 7.2 cm Endometrial Stripe:__>20 mm Right Ovary:__ 2.9 x 2.9 x 2.0 cm Left Ovary:__ 3.4 x 2.2 x 2.0 cm FINDINGS: Uterus: Intrauterine gestational sac is identified. pole is present. heart activity is i dentified with approximate heart rate of 173 bpm. Right Ovary: Mildly complex cyst in the right ovary measures 1.8 x 1.4 cm. Left Ovary: Within normal limits. Other: No free fluid. CONCLUSION: 1. Intrauterine identified. heart activity is seen with approximate heart rate of 173 bpm. 2. Possible corpus luteum cyst in the right ovary. Electronically signed by: Jake Hartmann MD 09/11/2017 3:45 AM EDT
== END 2017-09-11 04:28 | disposition home or self-care (01) ==
LOC: NEPC 00:39
DX: O20.0 Threatened abortion (principal); O36.0110 Maternal care for anti-D [Rh] antibodies, first trimester, not applicable or unspecified; Z3A.08 8 weeks gestation of pregnancy
CPT/HCPCS: 76700; 76817; 81001; 84702; 85025; 90384; 96372; J2790

== ENCOUNTER 2017-09-12 13:21 | Emergency (ER) | payer OTHER ==
[~2017-09-12] VITALS: Ht 170.2 cm; Wt 87.5 kg
[2017-09-12 13:46] VITALS: BP 127/71; PULSE 91; RESP 20; TEMP 98.3; O2SAT 100
--- NOTE | 2017-09-12 14:53 | PD ---
HPI Chief Complaint: Related Problem Time Seen by Provider: 14:50 Travel History International Travel<30 days: No Contact w/Intl Traveler<30days: No Traveled to known affect area: No History of Present Illness HPI 26-year-old female, approximately 9-10 weeks , presents to the emergency department for beta-hCG recheck and reevaluation after she was seen here around midnight on September 10 for vaginal bleeding. Says her vaginal bleeding stopped today around noon, and she only had a spot of blood on her toilet paper when she wiped this morning. She denies abdominal pain, cramping. Reports nausea without vomiting. Denies fevers. Denies abnormal vaginal discharge, odor. Denies any pain at all. Has not taken any medications or trying treatments to alleviate her symptoms. Symptoms are moderate in severity. No known aggravating or relieving factors. No known allergies. Denies significant past medical history. Does not have an courtesy car driver. No primary care provider. Has no other medical complaints. No other modifying factors or associated signs and symptoms. PFSH Past Medical History Diminished Hearing: No Reproductive: Yes (UTERINE PROLAPSE) Immunizations Current: Yes ?: LMP: 10 weeks : 3 Para: 3 Past Surgical History Section: Yes Social History Alcohol Use: No Tobacco Use: No Substance Use: No Allergies-Medications (Allergen,Severity, Reaction): Coded Allergies: No Known Allergies (Unverified Adverse Reaction, Unknown, 09/11/17) Reported Meds & Prescriptions Reported Meds & Active Scripts Active Review of Systems Except as stated in HPI: all other systems reviewed are Neg Physical Exam Narrative GENERAL: Well-nourished, well-developed female patient, in no acute distress SKIN: Warm and dry. HEAD: Atraumatic. Normocephalic. EYES: Pupils equal and round. No scleral icterus. No injection or drainage. ENT: Mucosa pink and moist. Airway patent. NECK: Trachea midline. CARDIOVASCULAR: Regular rate. RESPIRATORY: No accessory muscle use. GASTROINTESTINAL: Abdomen soft, non-tender, nondistended. Positive bowel sounds. No hepato-splenomegaly, or palpable masses. No guarding. MUSCULOSKELETAL: No obvious deformities. No clubbing. No cyanosis. No edema. NEUROLOGICAL: Awake and alert. Oriented 3. No obvious cranial nerve deficits. Motor grossly within normal limits. Normal speech. PSYCHIATRIC: Appropriate mood and affect; insight and judgment normal. Data Data Last Documented VS Vital Signs Date Time Temp Pulse Resp B/P (MAP) Pulse Ox O2 Delivery O2 Flow Rate FiO2 09/12/17 13:46 98.3 91 20 127/71 (89) 100 Orders Orders Beta Hcg (Quant/Titer) (09/12/17 13:50) Us Pelvis (Ques Preg/Ectopic) (09/12/17 ) Ed Discharge Order (09/12/17 18:08) Labs Laboratory Tests Test 09/12/17 13:10 Human Chorionic Gonadotropin, Quant [id number] MIU/ML [facility] Medical Decision Making Medical Screen Exam Complete: Yes Emergency Medical Condition: Yes Medical Record Reviewed: Yes Differential Diagnosis Intrauterine , complete miscarriage, threatened miscarriage, first trimester Narrative Course 26-year-old female that is approximately 9-10 weeks returns to the emergency department for beta-hCG recheck and reevaluation of vaginal bleeding. Her vaginal bleeding stopped today and she has not had any since around noon time. She was seen here on September 11 and [place] hCG [place] [id number]. Pelvic ultrasound concluded: an intrauterine identified and with activity 173 bpm. Repeat beta-hCG today [id number]. I discussed the patient with Dr. Man and plan of care discussed. I attempted bedside POC ultrasound and could not visualize a gestational sac or heartbeat. This was discussed again with Dr. Man and a formal pelvic with transvaginal ultrasound ordered. Ultrasound concludes: Pelvis Ultrasound 09/12/17 0000 Signed Impressions: CONCLUSION: 1. Solitary intrauterine gestation. Age by crown-rump length is 7 weeks 4 days . heart rate 173 bpm. 2. Stable 1.9 cm mildly complex cyst involving the right ovary. Patient provided a copy of the ultrasound report. Instructed patient to follow- up with courtesy car driver. Instructed patient to follow up with primary care provider. Patient verbalizes understanding and agreement with treatment plan. Patient is medically cleared and stable for discharge. Discussed reasons to return to the emergency department. Patient agrees with treatment plan. The patients vital signs are stable and the patient is stable for outpatient follow- up and treatment. Patient discharged home, stable and in no acute distress. Diagnosis Primary Impression: Intrauterine Referrals: Watch Assembler Primary Care Physician Patient Instructions: First Trimester (ED), General Instructions Additional Instructions: Nothing in the vagina, including intercourse, until you are cleared by the courtesy car driver Follow-up with courtesy car driver Follow-up with primary care provider Return to the emergency department immediately with worsening of symptoms Med/Other Pt SpecificInfo: No Change to Meds, No Meds Exist/No RX given Disposition: 01 DISCHARGE HOME Condition: Stable Berna Storm Sep 12, 2017 14:53
--- NOTE | 2017-09-12 17:53 | RADRPT ---
EXAM DATE: 09/12/2017 5:43 PM EDT AGE/SEX: 26 years / Female INDICATIONS: Vaginal bleeding. . CLINICAL DATA: This is the patient's initial encounter. Patient reports that signs and symptoms have been present for 1 day and indicates a pain score of 0/10. MEDICAL/SURGICAL HISTORY: . Uterine prolapse. section. COMPARISON: [facility] [place], US PELVIS (QUEST PREG/ECTOPIC) W/TRANS VAG, 09/11/2017. . MEASUREMENTS: Uterus:__11.5 x 5.9 x 7.6 cm Endometrial Stripe:__17 mm Right Ovary:__ 3.6 x 2.4 x 2.9 cm Left Ovary:__ 2.1 x 1.9 x 2.4 cm FINDINGS: Uterus: An intrauterine gestation is observed. A smoothly marginated gestational sac noted with a cr own-rump length that measures 1.37 cm which equals 7 weeks 4 days gestational age. heart rate i s 173 bpm. Right Ovary: 1.9 cm hypoechoic area is seen involving the right ovary. Strong posterior acoustical e nhancement noted. The right ovary is otherwise unremarkable. Appearance is stable. Left Ovary: Measures Other: No free fluid. CONCLUSION: 1. Solitary intrauterine gestation. Age by crown-rump length is 7 weeks 4 days. heart rate 173 bpm. 2. Stable 1.9 cm mildly complex cyst involving the right ovary. Electronically signed by: Franklin Guerra MD 09/12/2017 5:51 PM EDT
== END 2017-09-12 18:45 | disposition home or self-care (01) ==
LOC: NEPK 13:21
DX: Z34.91 Encounter for supervision of normal pregnancy, unspecified, first trimester (principal)
CPT/HCPCS: 76700; 84702